=== PATIENT | male | born 1940 | race Caucasian/White ===

== ENCOUNTER 2025-07-06 15:08 | Outpatient (CLI) | payer MEDICARE, SELFPAY ==
--- OUTSIDE RECORDS SUMMARY | 2008-08-08 11:17 | XMS_ITS | Continuity of Care Document ---
Author Organization [facility] Address [id number] [place] [phone] Phone Care Team Providers Care Preassembler [employer]ed Circuit Board Name Role Phone Unavailable Unavailable Unavailable Procedures Procedure Date Ophth Serv: Med Exam; Comp New 08 No MD Ophth Biomet A-scan; W/io Lens 08 No Charge Refraction Astigmatism Protocol Advance Directives Directive Yes / No Effective Date File Name Resuscitation Not Answered N/A N/A Life Support Not Answered N/A N/A Intubation Not Answered N/A N/A Antibiotics Not Answered N/A N/A IV Fluid Support Not Answered N/A N/A Tube Feed Not Answered N/A N/A Other Directive N/A N/A WARNING:The information contained in this section is historical and is provided for information only and does not constitute a legal document or any assurance that the information is still accurate. Please verify the information with the carlisle of the legal document before using it for clinical purposes. Encounters Encounter Description Practice Location Reason(s) For Visit Diagnoses Date Provider Providers Copied on Encounter [facility], [address] [place] [address], [id number], tel:[phone] [facility] No Information No Information [facility], [address] [place] [address], [id number], tel:[phone] [facility] No Information No Information Family History Family Member Type Diagnosis Age At Onset No Information Payers Payer name Insurance type Covered libertarian ID Authoriza tion(s) [facility] Claims Dpt CI [id number] Social History Type Description Quantity Date Captured Comments Alcohol Use Details Unknown Caffeine Use Details Unknown Tobacco Use Status No Information Smoking Status No Information Sex Male Chief Complaint And Reason For Visit No Information Reason For Referral Reason For Referral No Information History Of Present Illness Encounter Date Complaint History Of Prese nt Illness No Information Functional Status Date Functional Assessmen t No Information Instructions Date Instruction Additional Infor mation No Information Assessments Type Assessment Date No Information Patient Care Teams Name Effective Dates (start - stop) Status Members No Information
--- OUTSIDE RECORDS SUMMARY | 2021-07-02 20:00 | XMS_ITS | Continuity of Care Document ---
Author Organization [facility] Address [address] [place] [address] Phone Care Team Providers Care Lounge Car Attendant Name Role Phone Jw CUELLAR Raghu Unavailable Unavailable Allergies, Adverse Reactions, Alerts Substance Reaction Status Criticality No Known Drug Allergies Active No I nformation No Known Drug Allergies Active No I nformation Advance Directives Directive Yes / No Effective Date File Name No Information Encounters Encounter Description Practice Location Reason(s) For Visit Diagnoses Date Provider Providers Copied on Encounter [facility], [address] [place], [place], [id number] , [place] tel: [phone] Sandra RodriguezES Puckering of macula, bilateralMacular cyst, hole, or pseudohole, bilateral Sep-2 Jw Krishnamurthy. [facility], [address], [place], [address], [place]. tel: [phone] [facility], [address] [place], [place], [id number] , [place] tel: [phone] [facility] Location Puckering of macula, left eyeRegular astigmatism, bilateralDermatochala sis of right upper eyelidDermatochalasis of left upper eyelidOther secondary cataract, bilateralMacular cyst, hole, or pseudohole, left eyeMacular cyst, hole, or pseudohole, bilateralMacular cyst, hole, or pseudohole, right eyeOther specified postprocedural statesKeratoconjuncti vitis sicca, not specified as Sjogren's, bilateralCystoid macular degeneration, right eyePuckering of macula, bilateralVitreous degeneration, bilateralPuckering of macula, right eyePresence of intraocular lens 1 [facility] . [address] [place] [address], [id number], [place]. tel: [phone] [facility], [address] [place] [address], [id number] , [place] tel: [phone] [facility] Location Keratoconjunctivitis sicca, not specified as Sjogren's, bilateralCystoid macular degeneration, right eyeDermatochalasis of right upper eyelidMacular cyst, hole, or pseudohole, left eyePuckering of macula, right eyeMacular cyst, hole, or pseudohole, bilateralOther secondary cataract, bilateralPuckering of macula, bilateralVitreous degeneration, bilateralDermatochala sis of left upper eyelidRegular astigmatism, bilateralPuckering of macula, left eyePresence of intraocular lensMacular cyst, hole, or pseudohole, right eye 0 [facility] . [address] [place] [address], [id number], [place]. tel: [phone] [facility], [address] [place] [address], [id number] , [place] tel: [phone] [facility] Location Vitreous degeneration, bilateralRegular astigmatism, bilateralPresence of intraocular lensMacular cyst, hole, or pseudohole, bilateralDermatochala sis of left upper eyelidDermatochalasis of right upper eyelidKeratoconjuncti vitis sicca, not specified as Sjogren's, bilateralOther secondary cataract, bilateralPuckering of macula, bilateral 0 [facility] . [address] [place] [address], [id number], [place]. tel: [phone] [facility], [address] [place] [address], [id number] , [place] tel: [phone] [facility] Location Regular astigmatism, bilateralOther secondary cataract, bilateralPresence of intraocular lensCystoid macular degeneration, right eyeDermatochalasis of left upper eyelidPuckering of macula, bilateralMacular cyst, hole, or pseudohole, bilateralVitreous degeneration, bilateralKeratoconjun ctivitis sicca, not specified as Sjogren's, bilateralDermatochala sis of right upper eyelid Aug- 0 [facility] . [address] [place] [address], [id number], [place]. tel: [phone] [facility], [address] [place] [address], [place], [place], [id number] , [place] tel: [phone] [facility] Location Puckering of macula, bilateralVitreous degeneration, bilateralMacular cyst, hole, or pseudohole, bilateralRegular astigmatism, bilateralPresence of intraocular lensCystoid macular degeneration, right eye Mar- 0 [facility] . [address] [place] [address], [id number], [place]. tel: [phone] [facility], [address] [place] [address], [id number] , [place] tel: [phone] [facility] Macular cyst, hole, or pseudohole, bilateralRegular astigmatism, bilateralPresence of intraocular lensVitreous degeneration, bilateralCystoid macular degeneration, right eyePuckering of macula, bilateral Aug- 9 [facility] . [address] [place] [address], [id number], [place]. tel: [phone] [facility], [address] [place] [address], [id number] , [place] tel: [phone] [facility] Regular astigmatism, bilateralPuckering of macula, bilateralVitreous degeneration, bilateralMacular cyst, hole, or pseudohole, left eyePuckering of macula, left eyePresence of intraocular lensMacular cyst, hole, or pseudohole, right eyeMacular cyst, hole, or pseudohole, bilateralCystoid macular degeneration, right eye 9 [facility] . [address] [place] [address], [id number], [place]. tel: [phone] [facility], [address] [place] [address], [id number] , [place] tel: [phone] [facility] Presence of intraocular lensMacular cyst, hole, or pseudohole, right eyeRegular astigmatism, bilateralCystoid macular degeneration, right eyeVitreous degeneration, bilateralMacular cyst, hole, or pseudohole, left eyePuckering of macula, left eye Dec-0 9 [facility] . [address] [place] [address], [id number], [place]. tel:[phone] [facility], [facility], [place], [place], [id number] , [place] tel:[phone] [facility] Location Regular astigmatism, bilateralMacular cyst, hole, or pseudohole, right eyePresence of intraocular lensMacular cyst, hole, or pseudohole, left eye Fe 9 [facility] . [address] [place] [address], [facility], [place]. tel:[phone] [facility], [address] [place] [address], [place], [place], [id number] , [place] tel:[phone] [facility] Location Presence of intraocular lensRegular astigmatism, bilateral 9 [facility] . [address] [place] [address], [facility], [place]. tel: [phone] [facility], [address] [place] [address], [id number] , [place] tel:[phone] [facility] Presence of intraocular lensRegular astigmatism, bilateralAge-related nuclear cataract, left eye 9 [facility] . [address] [place] [address], [address], [place]. tel:[phone] [facility], [address] [place] [address], [id number] , [place] tel: [phone] [facility] Location Regular astigmatism, bilateralAge-related nuclear cataract, left eyePresence of intraocular lens 9 [facility] . [address] [place] [address], [address], [place]. tel: [phone] [facility], [address] [place], [place], [id number] , [place] tel: [phone] [facility] Location Age-related nuclear cataract, left eyeRegular astigmatism, bilateralAge-related nuclear cataract, bilateralPresence of intraocular lens 8 [facility] . [address] [place] [address], [facility], . tel: [phone] [facility], [facility] [place], [place], [id number] , [place] tel: [phone] [facility] Location Age-related nuclear cataract, bilateralRegular astigmatism, bilateral 8 [facility] . [address] [place] [address], [facility], . tel: [phone] [facility], [address] [place] [address], [address] [place] [address] , tel: [phone] [facility] No Information 5 [facility] . [address] [place] [address], [facility], . tel: [phone] Family History Family Member Type Diagnosis Age At Onset Problem (finding) Family history unknown Payers Payer name Insurance type Covered libertarian ID Authoriza tion(s) No Information Social History Type Description Quantity Date Captured Comments Sex Male Smoking Status No Information Chief Complaint And Reason For Visit No Information Reason For Referral Reason For Referral No Information History Of Present Illness Encounter Date Complaint History Of Prese nt Illness No Information Functional Status Date Functional Assessmen t No Information Instructions Date Instruction Additional Infor mation Impression/Plan Related to [employer] revealed a macular pucker. Impression/Plan Related to [employer] revealed a macular hole. Impression/Plan Related to Diagn osis Description: PCO (posterior capsular opacification), bilateral \nDiagnosis Code: 366.50 Impression/Plan Related to Diagn osis Description: Dermatochalasis of left upper eyelid \nDiagnosis Code: 374.87 Impression/Plan Related to Diagn osis Description: Cystoid macular degeneration of right eye \nDiagnosis Code: 362.53 Impression/Plan Related to Diagn osis Description: Dermatochalasis of right upper eyelid \nDiagnosis Code: 374.87 Impression/Plan Related to Diagn osis Description: KERATOCONJUNCTIVITIS SICCA NOT SPECIFIED SJOGREN'S, BILATERAL \nDiagnosis Code: 370.33 Impression/Plan Related to Diagn osis Description: Epiretinal membrane (ERM) of left eye \nDiagnosis Code: 362.56 Impression/Plan Related to Diagn osis Description: PVD (posterior vitreous detachment), both eyes \nDiagnosis Code: 379.21 Impression/Plan Related to Diagn osis Description: Epiretinal membrane (ERM) of right eye \nDiagnosis Code: 362.56 Impression/Plan Related to Diagn osis Description: Epiretinal membrane (ERM) of both eyes \nDiagnosis Code: 362.56 Impression/Plan Related to Diagn osis Description: Lamellar macular hole of left eye \nDiagnosis Code: 362.54 Impression/Plan Related to Diagn osis Description: Lamellar macular hole, both eyes \nDiagnosis Code: 362.54 Impression/Plan Related to Diagn osis Description: Lamellar macular hole of right eye \nDiagnosis Code: 362.54 Impression/Plan Related to Diagn osis Description: Other specified postprocedural states \nDiagnosis Code: 250.50 Impression/Plan Related to Diagn osis Description: Regular astigmatism of both eyes \nDiagnosis Code: 367.21 Impression/Plan Related to Diagn osis Description: Bilateral pseudophakia \nDiagnosis Code: V43.1 Impression/Plan Related to Diagn osis Description: KERATOCONJUNCTIVITIS SICCA NOT SPECIFIED SJOGREN'S, BILATERAL \nDiagnosis Code: 370.33 Impression/Plan Related to Diagn osis Description: Dermatochalasis of right upper eyelid \nDiagnosis Code: 374.87 Impression/Plan Related to Diagn osis Description: PCO (posterior capsular opacification), bilateral \nDiagnosis Code: 366.50 Impression/Plan Related to Diagn osis Description: PVD (posterior vitreous detachment), both eyes \nDiagnosis Code: 379.21 Impression/Plan Related to Diagn osis Description: Epiretinal membrane (ERM) of left eye \nDiagnosis Code: 362.56 Impression/Plan Related to Diagn osis Description: Cystoid macular degeneration of right eye \nDiagnosis Code: 362.53 Impression/Plan Related to Diagn osis Description: Epiretinal membrane (ERM) of right eye \nDiagnosis Code: 362.56 Impression/Plan Related to Diagn osis Description: Lamellar macular hole of left eye \nDiagnosis Code: 362.54 Impression/Plan Related to Diagn osis Description: Lamellar macular hole of right eye \nDiagnosis Code: 362.54 Impression/Plan Related to Diagn osis Description: Regular astigmatism of both eyes \nDiagnosis Code: 367.21 Impression/Plan Related to Diagn osis Description: Bilateral pseudophakia \nDiagnosis Code: V43.1 Impression/Plan Related to Diagn osis Description: Lamellar macular hole, both eyes \nDiagnosis Code: 362.54 Impression/Plan Related to Diagn osis Description: Epiretinal membrane (ERM) of both eyes \nDiagnosis Code: 362.56 Impression/Plan Related to Diagn osis Description: Dermatochalasis of left upper eyelid \nDiagnosis Code: 374.87 Impression/Plan Related to Diagn osis Description: Bilateral pseudophakia \nDiagnosis Code: V43.1 Impression/Plan Related to Diagn osis Description: Lamellar macular hole, both eyes \nDiagnosis Code: 362.54 Impression/Plan Related to Diagn osis Description: Epiretinal membrane (ERM) of both eyes \nDiagnosis Code: 362.56 Impression/Plan Related to Diagn osis Description: Dermatochalasis of left upper eyelid \nDiagnosis Code: 374.87 Impression/Plan Related to Diagn osis Description: Dermatochalasis of right upper eyelid \nDiagnosis Code: 374.87 Impression/Plan Related to Diagn osis Description: KERATOCONJUNCTIVITIS SICCA NOT SPECIFIED SJOGREN'S, BILATERAL \nDiagnosis Code: 370.33 Impression/Plan Related to Diagn osis Description: PVD (posterior vitreous detachment), both eyes \nDiagnosis Code: 379.21 Impression/Plan Related to Diagn osis Description: Regular astigmatism of both eyes \nDiagnosis Code: 367.21 Impression/Plan Related to Diagn osis Description: PCO (posterior capsular opacification), bilateral \nDiagnosis Code: 366.50 Impression/Plan Related to Diagn osis Description: Bilateral pseudophakia \nDiagnosis Code: V43.1 Impression/Plan Related to Diagn osis Description: Lamellar macular hole, both eyes \nDiagnosis Code: 362.54 Impression/Plan Related to Diagn osis Description: Epiretinal membrane (ERM) of both eyes \nDiagnosis Code: 362.56 Impression/Plan Related to Diagn osis Description: Dermatochalasis of left upper eyelid \nDiagnosis Code: 374.87 Impression/Plan Related to Diagn osis Description: Dermatochalasis of right upper eyelid \nDiagnosis Code: 374.87 Impression/Plan Related to Diagn osis Description: KERATOCONJUNCTIVITIS SICCA NOT SPECIFIED SJOGREN'S, BILATERAL \nDiagnosis Code: 370.33 Impression/Plan Related to Diagn osis Description: PVD (posterior vitreous detachment), both eyes \nDiagnosis Code: 379.21 Impression/Plan Related to Diagn osis Description: Cystoid macular degeneration of right eye \nDiagnosis Code: 362.53 Impression/Plan Related to Diagn osis Description: PCO (posterior capsular opacification), bilateral \nDiagnosis Code: 366.50 Impression/Plan Related to Diagn osis Description: Regular astigmatism of both eyes \nDiagnosis Code: 367.21 Impression/Plan Related to Diagn osis Description: Epiretinal membrane (ERM) of both eyes \nDiagnosis Code: 362.56 Impression/Plan Related to Diagn osis Description: Lamellar macular hole, both eyes \nDiagnosis Code: 362.54 Impression/Plan Related to Diagn osis Description: Cystoid macular degeneration of right eye \nDiagnosis Code: 362.53 Impression/Plan Related to Diagn osis Description: Regular astigmatism of both eyes \nDiagnosis Code: 367.21 Impression/Plan Related to Diagn osis Description: Bilateral pseudophakia \nDiagnosis Code: V43.1 Impression/Plan Related to Diagn osis Description: PVD (posterior vitreous detachment), both eyes \nDiagnosis Code: 379.21 Impression/Plan Related to Diagn osis Description: Cystoid macular degeneration of right eye \nDiagnosis Code: 362.53 Impression/Plan Related to Diagn osis Description: Lamellar macular hole, both eyes \nDiagnosis Code: 362.54 Impression/Plan Related to Diagn osis Description: Epiretinal membrane (ERM) of both eyes \nDiagnosis Code: 362.56 Impression/Plan Related to Diagn osis Description: PVD (posterior vitreous detachment), both eyes \nDiagnosis Code: 379.21 Impression/Plan Related to Diagn osis Description: Bilateral pseudophakia \nDiagnosis Code: V43.1 Impression/Plan Related to Diagn osis Description: Regular astigmatism of both eyes \nDiagnosis Code: 367.21 Impression/Plan Related to Diagn osis Description: Cystoid macular degeneration of right eye \nDiagnosis Code: 362.53 Impression/Plan Related to Diagn osis Description: Regular astigmatism of both eyes \nDiagnosis Code: 367.21 Impression/Plan Related to Diagn osis Description: Bilateral pseudophakia \nDiagnosis Code: V43.1 Impression/Plan Related to Diagn osis Description: PVD (posterior vitreous detachment), both eyes \nDiagnosis Code: 379.21 Impression/Plan Related to Diagn osis Description: Epiretinal membrane (ERM) of left eye \nDiagnosis Code: 362.56 Impression/Plan Related to Diagn osis Description: Epiretinal membrane (ERM) of both eyes \nDiagnosis Code: 362.56 Impression/Plan Related to Diagn osis Description: Lamellar macular hole of left eye \nDiagnosis Code: 362.54 Impression/Plan Related to Diagn osis Description: Lamellar macular hole, both eyes \nDiagnosis Code: 362.54 Impression/Plan Related to Diagn osis Description: Lamellar macular hole of right eye \nDiagnosis Code: 362.54 Impression/Plan Related to Diagn osis Description: Regular astigmatism of both eyes \nDiagnosis Code: 367.21 Impression/Plan Related to Diagn osis Description: Bilateral pseudophakia \nDiagnosis Code: V43.1 Impression/Plan Related to Diagn osis Description: PVD (posterior vitreous detachment), both eyes \nDiagnosis Code: 379.21 Impression/Plan Related to Diagn osis Description: Epiretinal membrane (ERM) of left eye \nDiagnosis Code: 362.56 Impression/Plan Related to Diagn osis Description: Partial thickness macular hole of right eye \nDiagnosis Code: 362.54 Impression/Plan Related to Diagn osis Description: Partial thickness macular hole of left eye \nDiagnosis Code: 362.54 Impression/Plan Related to Diagn osis Description: Cystoid macular degeneration of right eye \nDiagnosis Code: 362.53 Impression/Plan Related to Diagn osis Description: Regular astigmatism of both eyes \nDiagnosis Code: 367.21 Impression/Plan Related to Diagn osis Description: Partial thickness macular hole of right eye \nDiagnosis Code: 362.54 Impression/Plan Related to Diagn osis Description: Partial thickness macular hole of left eye \nDiagnosis Code: 362.54 Impression/Plan Related to Diagn osis Description: Bilateral pseudophakia \nDiagnosis Code: V43.1 Impression/Plan Related to Diagn osis Description: Bilateral pseudophakia \nDiagnosis Code: V43.1 Impression/Plan Related to Diagn osis Description: Regular astigmatism of both eyes \nDiagnosis Code: 367.21 Impression/Plan Related to Diagn osis Description: Regular astigmatism of both eyes \nDiagnosis Code: 367.21 Impression/Plan Related to Diagn osis Description: Age-related nuclear cataract of left eye \nDiagnosis Code: 366.16 Impression/Plan Related to Diagn osis Description: Bilateral pseudophakia \nDiagnosis Code: V43.1 Impression/Plan Related to Diagn osis Description: Pseudophakia of right eye \nDiagnosis Code: V43.1 Impression/Plan Related to Diagn osis Description: Age-related nuclear cataract of left eye \nDiagnosis Code: 366.16 Impression/Plan Related to Diagn osis Description: Regular astigmatism of both eyes \nDiagnosis Code: 367.21 Impression/Plan Related to Diagn osis Description: Regular astigmatism of both eyes \nDiagnosis Code: 367.21 Impression/Plan Related to Diagn osis Description: Age-related nuclear cataract of left eye \nDiagnosis Code: 366.16 Impression/Plan Related to Diagn osis Description: Pseudophakia of right eye \nDiagnosis Code: V43.1 Impression/Plan Related to Diagn osis Description: Age-related nuclear cataract of both eyes \nDiagnosis Code: 366.16 Impression/Plan Related to Diagn osis Description: Regular astigmatism of both eyes \nDiagnosis Code: 367.21 Impression/Plan Related to Diagn osis Description: Age-related nuclear cataract of both eyes \nDiagnosis Code: 366.16 Assessments Type Assessment Date No Information Patient Care Teams Name Effective Dates (start - stop) Status Members No Information
[2025-07-06 16:29] LABS: Hematocrit 40.7 % (42.0-52.0); Hemoglobin 13.4 g/dL (14.1-18.0); Immature Granulocytes % 0.3 %; Mean Corpuscular HGB Conc 32.9 g/dL (31.8-35.4); Mean Corpuscular Hemoglobin 30.5 pg (27.0-31.2); Mean Corpuscular Volume 92.7 fl (80-94); Nucleated Red Blood Cells % 0 %; Platelet Count 201 K/mm3 (142-424); Red Blood Count 4.39 M/mm3 (4.60-6.20); Red Cell Distribution Width-SD 50.2 fL; White Blood Count 7.7 K/mm3 (4.8-10.8)
[2025-07-06 17:41] LABS: Alanine Aminotransferase 19 U/L (12-78); Albumin Level 4.3 g/dl (3.5-5.0); Alkaline Phosphatase 72 U/L (38-126); Anion Gap 12.3 mEq/L (5-15); Aspartate Amino Transferase 21 U/L (17-59); Bilirubin,Direct 0.2 mg/dl (0.0-0.4); Bilirubin,Indirect 0.5 mg/dL (0.0-0.9); Bilirubin,Total 0.7 mg/dl (0.2-1.3); Bilirubin,Unconjugated 0.5 mg/dL (0.0-1.1); Blood Urea Nitrogen 23 mg/dl (9-20); Calcium 9.7 mg/dl (8.4-10.2); Carbon Dioxide 25 mmol/L (22.0-30.0); Chloride 105 mmol/L (98-107); Cholesterol 104 mg/dl (140-200); Creatinine,Serum 1.40 mg/dl (0.66-1.25); Estimated Glomerular Filt Rate 49 ml/min (>60); GFR (African American) 59 ML/MIN (>60); Glucose 88 mg/dl (74-100); HDL Cholesterol 41 mg/dl (40-60); Magnesium 2.0 mg/dl (1.6-2.3); Potassium 4.3 mmoL/L (3.5-5.1); Sodium 138 mmol/L (136-145); Total Protein,Serum 6.6 g/dl (6.3-8.2); Triglycerides 124 mg/dl (30-150)
[2025-07-06 17:49] LABS: NT Pro Brain Natriuretic Pep. 5010 pg/mL (0-450)
[2025-07-06 17:57] LABS: Free T4 (Free Thyroxine) 1.05 ng/dl (0.78-2.19)
[2025-07-06 18:11] LABS: Thyroid Stimulating Hormone 4.73 uIU/mL (0.465-4.68)
== END 2025-07-06 23:59 | disposition home or self-care (01) ==
LOC: LAB 15:10
PROVIDERS: PCP Family Medicine; Visit Provider Internal Medicine
DX: I08.8 Other rheumatic multiple valve diseases (principal); I11.9 Hypertensive heart disease without heart failure; R94.31 Abnormal electrocardiogram [ECG] [EKG]; Z86.79 Personal history of other diseases of the circulatory system; R06.09 Other forms of dyspnea
CPT/HCPCS: 36415; 80048; 80061; 80076; 83735; 83880; 84439; 84443; 85025

== ENCOUNTER 2025-07-18 08:57 | Outpatient (CLI) | payer MEDICARE, SELFPAY ==
--- OUTSIDE RECORDS SUMMARY | 2025-05-31 11:00 | XMS_ITS | Encounter Summary ---
Author Organization [employer] ([place], [place], [place], [place]) Address [address] [place] [address] Care Team Providers Care Disaster Recovery Specialist Name Role Phone Gera Conner MD Primary Care Provider [phone] Reason for Visit * Reason Comments Follow-up Six week f/u with ho lter results Encounter Details Date Type Department Care Team (Late st Contact Info) Description 05/31/2025 11:00 AM EDT Office Visit [facility] Electrophysiology [address] [place] [address] Js Martinez MD [address] [place] [address] [address] [place] [address] Palpitations (Primary Dx) Social History Tobacco Use [...] Date Romulo rded Speak language other than Brazilian at home Not on file 10/24/2023 Want [...] Normal range of motion. Integumentary: Warm, Dry, [place]. Neurologic: Alert, Oriented. Psychiatric: Cooperative, Appropriate mood [...] I offered him to go and see berry picker machine operator to see if any further exploration of the MR and follow regularly with it but he wants to go to where he lives where there is a good berry picker machine operator. They know the name. Recommended to follow-up with urology within a few months. He does not want to do it because he is on Ditropan. Assessment and Plan: 81-year-old male referred by Dr Conner for atrial fibrillation moved back from [place] saw Dr Joyner in 2014 in the [...] I offered him to go and see berry picker machine operator to see if any further exploration of the MR and follow regularly with it but he wants to go to where he lives where there is a good berry picker machine operator. They know the name. Recommended to follow-up [...] Primary documented in this encounter Care Teams Disaster Recovery Specialist Relationship Specialty Start Date End Date Gera Conner MD [address] [place] [address] PCP - General Family Medicine 07/09/22 documented as of this encounter
--- OUTSIDE RECORDS SUMMARY | 2025-07-18 09:03 | XMS_ITS | Clinical Summary ---
Author Organization [employer] ([place], [place], [place], [place]) Address [address] [place] [address] Care Team Providers Care Manager Aerospace Name Role Phone Gera Conner MD Primary Care Provider [phone] Allergies No known active allergies Medications atorvastatin (LIPITOR) 40 MG tablet Take 1 tablet (40 mg total) by mouth daily. Active cyanocobalamin (VITAMIN B-12) 1000 MCG tablet Take 1 tablet (1,000 mcg total) by mouth daily. Active apixaban (ELIQUIS) 5 mg Tab tablet Take 1 tablet (5 mg total) by mouth 2 (two) times daily. Active cholecalciferol, vitamin D3, 2,000 unit Tab Take 1 tablet (2,000 Units total) by mouth daily. Active clobetasoL (TEMOVATE) 0.05 % external solution SMARTSIG:To pical 09/07/2022 Active oxybutynin (DITROPAN-XL) 10 MG 24 hr tablet Take 1 tablet (10 mg total) by mouth daily. 2022 Active metoprolol tartrate (LOPRESSOR) 25 MG tabletIndication s:Palpitations 37.5 MG in the AM and 12.5 in the PM. 180 tablet 3 07/02/2023 Active levothyroxine (SYNTHROID) 25 MCG tablet Take 1 tablet (25 mcg total) by mouth daily. 05/30/2025 Active Active Problems No known active problems Encounters Date Type Department Care Team Description 05/31/2025 11:00 AM EDT Office Visit [address] [address] Js Martinez MD Palpitations (Primary Dx) 05/31/2025 Travel 05/10/2025 Telephone [facility] Cardiology [address] [place] [address] Js Martinez MD Results from Last 3 Months Immunizations Immunization Administration Dates Next Due Influenza Three-tiv Pf 07/15/2015 SHINGLES VARICELLA (ZOSTAVAX) ZOSTER 06/17/2013 Social History Tobacco Use Types Packs/Day Years [...] Date Romulo rded Speak language other than Portuguese at home Not on file 10/24/2023 Want [...] on file Sexual Orientation Not on file Last Filed Vital Signs Vital Sign Reading Time Taken Comments Blood Pressure 139/80 05/31/2025 11:51 AM EDT Pulse 80 05/31/2025 11:51 AM EDT Temperature - - Respiratory Rate 16 10/22/2022 10:2 4 AM EST Oxygen Saturation 97% 05/31/2025 11: 51 AM EDT Inhaled Oxygen Concentration - - Weight 76.6 kg (168 lb 12.8 oz) 025 11:51 AM EDT Height 177.8 cm (5' 10 ) 05/31/2025 11: 51 AM EDT Body Mass Index 24.22 05/31/2025 11:51 AM EDT Plan of Treatment Health Maintenance Due Date Last Done Comments Depression Screening (12+) 1952 Shingles Vaccine (Zoster) (2 of 2) 08/12/20132012 Respiratory Syncytial Virus (RSV) Adult or (1 - 1-dose 75+ series) 2017 Medicare Initial AWV G0438 09/19/2023 Falls Risk Screening 10/13/2024 COVID-19 VACCINE (4 - 2024-2 6 season) 2025 08/24/2021, 01/23/2021, 12/28/2020 Influenza Vaccine (#1) 2025 , 09/16/2019, 08/21/2018, Additional history exists Tobacco Cessation Counseling and Screening (12+) 05/31/2026 05/31/2025 DTAP/TDAP/TD VACCINES (2 - T d or Tdap) 06/24/2031 06/24/2021 Pneumococcal 50+ years Completed 11/15/2015, 2011 Procedures Procedure Name Priority Date/Time Associated Diagnosis Comments FS_MODEL_IP_ECG 12-LEAD Routine 05/31/2025 11:50 AM EDT Palpitations HOLTER MONITOR HOOKUP Routine 05/02/2025 7:54 AM EDT Palpitations from Last 3 Months Results * ECG 12 lead (05/31/2025 11:50 AM EDT) Js Martinez MD ECG ORDERABLES Final Result * HOLTER MONITOR HOOKUP (05/02/2025 7:54 AM EDT) Anatomical Region Laterality Modality Other us Js Martinez MD [facility] C[facility] SERVICES ORDERABLES F inal Result from Last 3 Months Insurance [employer] MEDICARE HMO Care Teams Manager Aerospace Relationship Specialty Start Date End Date Gera Conner MD [address] [place] [address] [place] [address] PCP - General Family Medicine 07/09/22
--- OUTSIDE RECORDS SUMMARY | 2025-07-18 09:03 | XMS_ITS | Referral Summary ---
Author Organization [employer] ([place], [place], [place], [place]) Address [address] [place] [address] Care Team Providers Care Transcription Specialist Name Role Phone Gera Conner MD Primary Care Provider [phone] Encounters Date Type Department Care Team Description 05/31/2025 Travel 05/31/2025 11:00 AM EDT Office Visit [facility] Electrophysiology [address] [place] [address] Js Martinez MD Palpitations (Primary Dx) 05/10/2025 Telephone [facility] Cardiology [address] [place] [address] Js Martinez MD Results from Last 3 Months Allergies No known active allergies Medications atorvastatin [...] Active Active Problems No known active problems Immunizations Immunization Administration Dates Next Due Influenza [...] Date Romulo rded Speak language other than French at home Not on file 10/24/2023 Want [...] 05/31/2025 11:51 AM EDT Plan of Treatment Not on file Procedures Procedure Name Priority Date/Time Associated Diagnosis Comments FS_MODEL_IP_ECG 12-LEAD Routine 05/31/2025 11:50 AM EDT Palpitations HOLTER MONITOR HOOKUP Routine 05/02/2025 7:54 AM EDT Palpitations from Last 3 Months Results * ECG 12 lead (05/31/2025 11:50 AM EDT) Js Martinez MD ECG ORDERABLES Final Result * HOLTER MONITOR HOOKUP (05/02/2025 7:54 AM EDT) Anatomical Region Laterality Modality Other Js Martinez MD CV CARDIAC SERVICES ORDERABLES F inal Result from Last 3 Months Insurance [employer] MEDIC[employer] HMO Care Teams Transcription Specialist Relationship Specialty Start Date End Date Gera Conner MD [address] [place] [address] PCP - General Family Medicine 07/09/22
--- OUTSIDE RECORDS SUMMARY | 2025-07-18 09:04 | XMS_ITS | Encounter Summary ---
Author Organization [employer] ([place], [place], [place], [place]) Address [address] [place] [address] Care Team Providers Care Water Engineer Name Role Phone Gera Conner MD Primary Care Provider [phone] Reason for Referral * Echocardiography (Routine) - Closed Specialty Diagnoses / Procedures Referred By Contac t Referred To Contact Diagnoses Essential hypertension, malignant Caryn paroxysmal tachycardia (HCC) Procedures ECHO COMPLETE (DOPPLER / COLOR) W OR WO CONTRAST [facility] Scheduling [address] [place] [address] Phone: tel: fax: Referral ID Status Reason Start Date Expiration Date Visits Re quested Visits Authorized [id number] Closed 07/10/2022 01/06/2023 1 1 Encounter Details Date Type Department Care Team (Late st Contact Info) Description 07/10/2022 Outside Orders [facility] Scheduling [address] [place] [address] Js Martinez MD Essential hypertension, malignant (Primary Dx); Caryn paroxysmal tachycardia (HCC) Social History Tobacco Use Types Packs/Day Years Used Date Smoking Tobacco: Never Assessed Sex and Gender Information Value Date Recorded Sex Assigned at Not on file Legal Sex Male 5:27 PM CDT Gender Identity Not on file Sexual Orientation Not on file documented as of this encounter Plan of Treatment Not on file documented as of this encounter Results * ECHO COMPLETE (DOPPLER / COLOR) WO CONTRAST (09/17/2022 10:37 AM EST) Anatomical Region Laterality Modality Heart Vascular Ultraso und 09/17/2022 9:24 AM EST Narrative 09/18/2022 5:57 PM EST TRANSTHORACIC ECHOCARDIOGRAPHY REPORT Demographics Patient Name: KRISTAN Brown : 1940 Age: 81 year(s) Corporate ID Number: [id number] Gender Male Eyeglass Maker: ADRIENNE German Height: 70 inches Referring Physician: KEYSHA ARRIAGA Weight: 183.01 pounds Interpreting Physician: JS MARTINEZ MD BMI: 26.26 kg/m^2 Date of Service: 09/17/2022 Blood Pressure: 140/62 mmHg Type of Study: TTE procedure: EC Echo Complete, ECHO COMPLETE (DOPPLER / COLOR) W OR WO CONTRAST. Patient Status: Routine OP Study Location: Echo LabTechnical Quality: Adequate visualization Impression: Indication: Supraventricular tachycardia I47.1, Malignant essential hypertension I10 Normal sized left ventricle. Mild left ventricular hypertrophy. Visually estimated ejection fraction 50% +/- 5%. Normal left ventricular systolic function. Indeterminate diastolic function. Abnormal left atrial volume index 39.4 ml/m2. Mild aortic regurgitation. Abnormal TAPSE; abnormal right ventricular function. No masses or thrombi are seen. Measurements Summary: LVEDd: 4.45 cm LVESd: 2.72 cm IVSEd: 1.28 cm AO Root:3.38 cm LVPWd: 1.2 cm Contractility Score At rest the following contractility abnormalities were noted: Hypokinesis of the Basal infero-lateral, the Basal infero-septal, the Basal anterior, the Basal inferior and the Basal alpa-lateral segments. Contractility of all other segments appeared normal. LV regional wall motion: (0-Not visualized 1-Normal 2-Hypokinesis 3-Akinesis 4-Dyskinesis 5-Aneurysm) Left Ventricle Peak E-wave: 0.64 Peak A-wave: 0.19 m/s E/A ratio: 3.31 m/s Volume [id number] LV length: 7.94 cm ml Volume .99 ml LVOT diameter: 2.12 cm Normal sized left ventricle. Mild left ventricular hypertrophy. Visually estimated ejection fraction 50% +/- 5%. Normal left ventricular systolic function. Unable to obtain bullseye average for strain due to limited visualization. Indeterminate diastolic function. No left ventricular masses or thrombi. Right Ventricle Diastolic dimension: 3.82 RV systolic pressure: 26.43 mmHg cm Normal sized right ventricle. Abnormal TAPSE; abnormal right ventricular function. Left Atrium LA dimension: 4.2 cm LA volume:79.29 ml LA/Aorta: 1.24 Abnormal left atrial volume index 39.4 ml/m2. Intact atrial septum. No atrial mass or thrombus. Right Atrium Normal sized right atrium. Intact atrial septum. No atrial mass or thrombus. Mitral Valve Deceleration time: 227.84 msec Mitral valve annulus calcification. Trace mitral regurgitation. No mitral stenosis. No masses or vegetations seen. Aortic Valve AI P1/2t: 763.89 msec LVOT VTI: 14.16 cm Deceleration time: 2634.09 msec Mildly thickend free edges of the aortic valve leaflets. Mild aortic regurgitation. No aortic stenosis. No masses or vegetations seen. Tricuspid Valve TR velocity: 2.42 m/s TR gradient: 23.4256 mmHg Estimated RAP: 3 mmHg RVSP: 26.47 mmHg Structurally normal tricuspid valve. Mild (1+) tricuspid regurgitation. No tricuspid stenosis. No masses or vegetations seen. Pulmonic Valve Acceleration time: 133.79 msec PASP: 26.43 mmHg Structurally normal pulmonic valve. Mild pulmonic regurgitation (1+). No pulmonic stenosis. No masses or vegetations seen. Great Vessels Aorta Aortic Root: 3.38 cm Ascending Aorta: 3.5 cm LVOT Diameter: 2.12 cm Visualized aorta is normal. Normal aortic root. No evidence of dissection. IVC is not well visualized. Pericardium / Pleura No pericardial effusion. Other No masses or thrombi. No intracardiac shunt. Procedure Note Js Martinez MD - 09/18/2022 TRANSTHORACIC ECHOCARDIOGRAPHY REPORT Demographics Patient Name: KRISTAN Brown : 1940 Age: 81 year(s) Corporate ID Number: [id number] Gender Male Eyeglass Maker: ADRIENNE German Height: 70 inches Referring Physician: KEYSHA ARRIAGA Weight: 183.01 pounds Interpreting Physician: JS MARTINEZ MD BMI: 26.26 kg/m^2 Date of Service: 09/17/2022 Blood Pressure: 140/62 mmHg Type of Study: TTE procedure: EC Echo Complete, ECHO COMPLETE (DOPPLER / COLOR) W ORWO CONTRAST. Patient Status: Routine OP Study Location: Echo LabTechnical Quality: Adequate visualization Impression: Indication: Supraventricular tachycardia I47.1, Malignant essential hypertension I10 Normal sized left ventricle. Mild left ventricular hypertrophy. Visually estimated ejection fraction 50% +/- 5%. Normal left ventricular systolic function. Indeterminate diastolic function. Abnormal left atrial volume index 39.4 ml/m2. Mild aortic regurgitation. Abnormal TAPSE; abnormal right ventricular function. No masses or thrombi are seen. Measurements Summary: LVEDd: 4.45 cm LVESd: 2.72 cm IVSEd: 1.28 cm AO Root:3.38 cm LVPWd: 1.2 cm Contractility Score At rest the following contractility abnormalities were noted:Hypokinesis of the Basal infero-lateral, the Basal infero-septal, the Basalanterior, the Basal inferior and the Basal alpa-lateral segments. Contractilityof all other segments appeared normal. LV regional wall motion: (0-Not visualized 1-Normal 2-Hypokinesis 3-Akinesis 4-Dyskinesis 5-Aneurysm) Left Ventricle Peak E-wave: 0.64 Peak A-wave: 0.19 m/s E/A ratio: 3.31 m/s Volume [id number] LV length: 7.94 cm ml Volume ukpqpyyl01.99 ml LVOT diameter: 2.12 cm Normal sized left ventricle. Mild left ventricular hypertrophy. Visually estimated ejection fraction 50% +/- 5%. Normal left ventricular systolic function. Unable to obtain bullseye average for strain due to limitedvisualization. Indeterminate diastolic function. No left ventricular masses or thrombi. Right Ventricle Diastolic dimension: 3.82 RV systolic pressure: 26.43 mmHg cm Normal sized right ventricle. Abnormal TAPSE; abnormal right ventricular function. Left Atrium LA dimension: 4.2 cm LA volume:79.29 ml LA/Aorta: 1.24 Abnormal left atrial volume index 39.4 ml/m2. Intact atrial septum. No atrial mass or thrombus. Right Atrium Normal sized right atrium. Intact atrial septum. No atrial mass or thrombus. Mitral Valve Deceleration time: 227.84 msec Mitral valve annulus calcification. Trace mitral regurgitation. No mitral stenosis. No masses or vegetations seen. Aortic Valve AI P1/2t: 763.89 msec LVOT VTI: 14.16 cm Deceleration time: 2634.09 msec Mildly thickend free edges of the aortic valve leaflets. Mild aortic regurgitation. No aortic stenosis. No masses or vegetations seen. Tricuspid Valve TR velocity: 2.42 m/s TR gradient: 23.4256 mmHg Estimated RAP: 3 mmHg RVSP: 26.47 mmHg Structurally normal tricuspid valve. Mild (1+) tricuspid regurgitation. No tricuspid stenosis. No masses or vegetations seen. Pulmonic Valve Acceleration time: 133.79 msec PASP: 26.43 mmHg Structurally normal pulmonic valve. Mild pulmonic regurgitation (1+). No pulmonic stenosis. No masses or vegetations seen. Great Vessels Aorta Aortic Root: 3.38 cm Ascending Aorta: 3.5 cm LVOT Diameter: 2.12 cm Visualized aorta is normal. Normal aortic root. No evidence of dissection. IVC is not well visualized. Pericardium / Pleura No pericardial effusion. Other No masses or thrombi. No intracardiac shunt. Js Martinez MD CV ECHO ORDERABLES Final Result documented in this encounter Visit Diagnoses Diagnosis Essential hypertension, malignant- Primary Caryn paroxysmal tachycardia (HCC) Paroxysmal supraventricular tachycardia Essential hypertension, malignant Caryn paroxysmal tachycardia (HCC) Paroxysmal supraventricular tachycardia documented in this encounter Care Teams Water Engineer Relationship Specialty Start Date End Date Gera Conner MD [address] [place] [address] PCP - General Family Medicine 07/09/22 documented as of this encounter
--- OUTSIDE RECORDS SUMMARY | 2025-07-18 09:04 | XMS_ITS | Encounter Summary ---
Author Organization [employer] ([place], [place], [place], [place]) Address [address] [place] [address] Care Team Providers Care Disposal Worker Name Role Phone Gera Conner MD Primary Care Provider [phone] Encounter Details Date Type Department Care Team (Latest Contact Info) Description 05/31/2025 Travel Social History Tobacco Use Types Packs/Day Years Used Date Smoking Tobacco: Never Smokeless Tobacco: Never Alcohol Use Standard Drinks/Week Comments Not Currently 0 (1 standard drink = 0.6 oz pur e alcohol) Family and Community Support Answer Varinder e Recorded Help with Day to Day Activities Not on file 10/24/2023 Feeling Lonely or Isolated Not on file 10/24 Educational Attainment Answer Date Romulo rded Speak language other than Arabic at home Not on file 10/24/2023 Want [...] on file documented as of this encounter Visit Diagnoses Not on filedocumented in this encounter Care Teams Disposal Worker Relationship Specialty Start Date End Date Gera Conner MD [facility] [place] [address] PCP - General Family Medicine 07/09/22 documented as of this encounter
[2025-07-18 12:57] LABS: NT Pro Brain Natriuretic Pep. 2350 pg/mL (0-450)
== END 2025-07-18 23:59 | disposition home or self-care (01) ==
LOC: LAB 08:58
PROVIDERS: PCP Family Medicine; Visit Provider Nurse Practitioner
DX: I10 Essential (primary) hypertension (principal); R06.00 Dyspnea, unspecified
CPT/HCPCS: 36415; 83880

== ENCOUNTER 2025-07-20 07:21 | Outpatient (CLI) | payer MEDICARE, SELFPAY ==
--- OUTSIDE RECORDS SUMMARY | 2008-08-08 11:17 | XMS_ITS | Continuity of Care Document ---
Author Organization [facility] Address [id number] [place] [phone] Phone Care Team Providers Care Pharmacovigilance Scientist Name Role Phone Unavailable Unavailable Unavailable Procedures [...] accurate. Please verify the information with the cralisle of the legal document before using it for clinical purposes. Encounters Encounter Description Practice Location Reason(s) For Visit Diagnoses Date Provider Providers Copied on Encounter [facility], [address] [place] [address], [id number], tel:[phone] [facility] No Information No Information [facility], [address] [place] [address], [id number], tel:[phone] [facility] No Information No Information Family History Family Member Type Diagnosis Age At Onset No Information Payers Payer name Insurance type Covered green party ID Authoriza tion(s) [facility] Claims Dpt CI [id number] Social History Type Description Quantity Date [...]
--- OUTSIDE RECORDS SUMMARY | 2021-07-02 20:00 | XMS_ITS | Continuity of Care Document ---
Author Organization [facility] Address [address] [place] [address] Phone Care Team Providers Care Derrick Engineer Name Role Phone Raghu Escalera OD Unavailable [...] on Encounter [facility], [address] [place], [place], [id number] , [place] tel: [phone] [place] [address] [place] Puckering of macula, bilateralMacular cyst, hole, or pseudohole, bilateral Sep-2 Jw Krishnamurthy. [facility], [address], [place], [address], [place]. tel: [phone] [facility], [facility] [place], [place], [id number] , [place] tel: [phone] [facility] Location Puckering of macula, left eyeRegular [...] intraocular lens 0 1 [employer] . [address] [place] [address], [id number], . tel: [phone] [facility], [address] [place] [address], [id number] , [place] tel: [phone] [facility] Location Keratoconjunctivitis sicca, not specified as [...] pseudohole, right eye 0 [employer] . [address] [place] [address], [address], [place]. tel: [phone] [facility], [address] [place] [address], [id number] , [place] tel: [phone] [facility] Location Vitreous degeneration, bilateralRegular astigmatism, bilateralPresence of intraocular lensMacular cyst, hole, or pseudohole, bilateralDermatochala sis of left upper eyelidDermatochalasis of right upper eyelidKeratoconjuncti vitis sicca, not specified as Sjogren's, bilateralOther secondary cataract, bilateralPuckering of macula, bilateral Sep- 0 0 [employer] . [address] [place] [address], [address], [place]. tel: [phone] [facility], [address] [place] [address], [id number] , [place] tel: [phone] [facility] Location Regular astigmatism, bilateralOther secondary cataract, bilateralPresence of intraocular lensCystoid macular degeneration, right eyeDermatochalasis of left upper eyelidPuckering of macula, bilateralMacular cyst, hole, or pseudohole, bilateralVitreous degeneration, bilateralKeratoconjun ctivitis sicca, not specified as Sjogren's, bilateralDermatochala sis of right upper eyelid Aug- 0 [employer] . [address] [place] [address], [address], . tel: [phone] [facility], [address] [place] [address], [id number] , [place] tel: [phone] [facility] Location Puckering of macula, bilateralVitreous degeneration, bilateralMacular cyst, hole, or pseudohole, bilateralRegular astigmatism, bilateralPresence of intraocular lensCystoid macular degeneration, right eye Franck- 0 [employer] . [address] [place] [address], [facility], . tel: [phone] [facility], [address] [place] [address], [id number] , [place] tel: [phone] [facility] Location Macular cyst, hole, or pseudohole, bilateralRegular astigmatism, bilateralPresence of intraocular lensVitreous degeneration, bilateralCystoid macular degeneration, right eyePuckering of macula, bilateral Aug- 9 [employer] . [address] [place] [address], [address], [place]. tel: [phone] [facility], [address] [place] [address], [id number] , [place] tel: [phone] [facility] Location Regular astigmatism, bilateralPuckering of macula, bilateralVitreous degeneration, bilateralMacular cyst, hole, or pseudohole, left eyePuckering of macula, left eyePresence of intraocular lensMacular cyst, hole, or pseudohole, right eyeMacular cyst, hole, or pseudohole, bilateralCystoid macular degeneration, right eye Jan- 9 [employer] . [address] [place] [address], [address], [place]. tel: [phone] [facility], [address] [place], [place], [id number] , [place] tel: [phone] [facility] Presence of intraocular lensMacular cyst, hole, or pseudohole, right eyeRegular astigmatism, bilateralCystoid macular degeneration, right eyeVitreous degeneration, bilateralMacular cyst, hole, or pseudohole, left eyePuckering of macula, left eye Dec-0 9 [employer] . [address] [place] [address], [address], [place]. tel: [phone] [facility], [address] [place] [address], [id number] , [place] tel:[phone] [facility] Regular astigmatism, bilateralMacular cyst, hole, or pseudohole, right eyePresence of intraocular lensMacular cyst, hole, or pseudohole, left eye Fe-0 9 [employer] . [address] [place] [address], [address], [place]. tel:[phone] [facility], [address] [place] [address], [id number] , [place] tel: [phone] [facility] Presence of intraocular lensRegular astigmatism, bilateral 9 [employer] . [address] [place] [address], [address], [place]. tel: [phone] [facility], [address] [place] [address], [id number] , [place] tel: [phone] [facility] Presence of intraocular lensRegular astigmatism, bilateralAge-related nuclear cataract, left eye 9 [employer] . [address] [place] [address], [address], [place]. tel:[phone] [facility], [address] [place] [address], [id number] , [place] tel: [phone] [facility] Regular astigmatism, bilateralAge-related nuclear cataract, left eyePresence of intraocular lens 9 [employer] . [address] [place] [address], [address], . tel: [phone] [facility], [address] [place], [place], [id number] , tel: [phone] [facility] Age-related nuclear cataract, left eyeRegular astigmatism, bilateralAge-related nuclear cataract, bilateralPresence of intraocular lens 8 [employer] . [address] [place] [address], [facility], . tel: [phone] [facility], [address] [place], [place], [id number] , [place] tel: [phone] [facility] Age-related nuclear cataract, bilateralRegular astigmatism, bilateral 8 [employer] . [address] [place] [address], [facility], . tel: [phone] [facility], [address] [place], [place], [address] [place] [address] , tel: [phone] [facility] No Information 5 [employer] . [address] [place] [address], [facility], . tel: [phone] Family History Family Member Type Diagnosis Age [...] Additional Infor mation Impression/Plan Related to [employer] revealed a macular pucker. Impression/Plan Related to [employer] revealed a macular hole. Impression/Plan Related to [...] 367.21 Impression/Plan Related to Diagn osis Description: PVD [...] 362.56 Impression/Plan Related to Diagn osis Description: Regular [...]
--- OUTSIDE RECORDS SUMMARY | 2025-05-31 11:00 | XMS_ITS | Encounter Summary ---
Author Organization [employer] ([place], [place], [place], [place]) Address [address] [place] [address] Care Team Providers Care Repair Cameraman Name Role Phone Gera Conner MD Primary Care Provider [phone] Reason for Visit * Reason Comments Follow-up Six week f/u with ho lter results Encounter Details Date Type Department Care Team (Late st Contact Info) Description 05/31/2025 11:00 AM EDT Office Visit [facility] Electrophysiology [address] [place] [address] Js Martinez MD [address] [place] [address] [address] [place] [address] Palpitations (Primary Dx) Social History Tobacco Use Types Packs/Day Years Used Date Smoking Tobacco: Never Smokeless Tobacco: Never Tobacco Cessation:Counseling Given: Not Answered Alcohol Use Standard Drinks/Week Comments Not Currently 0 (1 standard drink = 0.6 oz pur e alcohol) Family and Community Support Answer Varinder e Recorded Help with Day to Day Activities Not on file 10/24/2023 Feeling Lonely or Isolated Not on file 10/24 Educational Attainment Answer Date Romulo rded Speak language other than Albanian at home Not on file 10/24/2023 Want help with school or training Not on file 10/24/2023 Substance Use Answer Date Recorded Used prescription meds for non-medical reasons N ot on file 10/24/2023 Used illegal drugs past 12 months Not on file 10/24/2023 Sex and Gender Information Value Date Recorded Sex Assigned at Not on file Legal Sex Male 5:27 PM CDT Gender Identity Not on file Sexual Orientation Not on file documented as of this encounter Last Filed Vital Signs Vital Sign Reading Time Taken Comments Blood Pressure 139/80 05/31/2025 11:51 AM EDT Pulse 80 05/31/2025 11:51 AM EDT Temperature - - Respiratory Rate - - Oxygen Saturation 97% 05/31/2025 11: 51 AM EDT Inhaled Oxygen Concentration - - Weight 76.6 kg (168 lb 12.8 oz) 025 11:51 AM EDT Height 177.8 cm (5' 10 ) 05/31/2025 11: 51 AM EDT Body Mass Index 24.22 05/31/2025 11:51 AM EDT documented in this encounter Progress Notes * Js Martinez MD - 05/31/2025 11:00 AM EDT Reason For Visit: 84 y.o. male here for a follow-up visit Medications: Scheduled Medications: More meds Current Outpatient Medications on File Prior to Visit Medication Sig Dispense Refill apixaban (ELIQUIS) 5 mg Tab tablet Take 1 tablet (5 mg total) by mouth 2 (two) times daily. atorvastatin (LIPITOR) 40 MG tablet Take 1 tablet (40 mg total) by mouth daily. cholecalciferol, vitamin D3, 2,000 unit Tab Take 1 tablet (2,000 Units total) by mouth daily. clobetasoL (TEMOVATE) 0.05 % external solution SMARTSIG:Topical cyanocobalamin (VITAMIN B-12) 1000 MCG tablet Take 1 tablet (1,000 mcg total) by mouth daily. levothyroxine (SYNTHROID) 25 MCG tablet Take 1 tablet (25 mcg total) by mouth daily. metoprolol tartrate (LOPRESSOR) 25 MG tablet 37.5 MG in the AM and 12.5 in the PM. 180 tablet 3 oxybutynin (DITROPAN-XL) 10 MG 24 hr tablet Take 1 tablet (10 mg total) by mouth daily. [DISCONTINUED] amLODIPine (NORVASC) 5 MG tablet Take 1 tablet (5 mg total) by mouth 2 (two) times daily. [DISCONTINUED] hydrocortisone 2.5 % ointment SMARTSIG:Topical No current facility-administered medications on file prior to visit. Problem list and diagnosis There is no problem list on file for this patient. 1. Palpitations ECG 12 lead Allergies: No Known Allergies Physical Exam: Blood pressure 139/80, pulse 80, height 1.778 m (5' 10 ), weight 76.6 kg (168 lb 12.8 oz), SpO2 97%. General: Alert and oriented. Eye: Pupils are equal, round and reactive to light. HENT: Normocephalic. Neck: Supple, Non-tender, No carotid bruit, No jugular venous distention. Respiratory: Lungs are clear to auscultation, Respirations are non-labored. Cardiovascular: irregular rhythm, 3 out of 6 systolic murmur, Good pulses equal in all extremities. Jugular Veins: Not distended. Gastrointestinal: Soft, Non-tender, Non-distended, Normal bowel sounds. Musculoskeletal: Normal range of motion. Integumentary: Warm, Dry, Rote. Neurologic: Alert, Oriented. Psychiatric: Cooperative, Appropriate mood & affect. Labs, Imaging, and Other Studies: EKG: sinus rhythm Echo Results (last 7 days) No results found for the last 168 hours. No results found for: K No results found for: CREATININE No results found for: EGFR , GFR No results found for: HGB No results found for: PLT No results found for: TSH No results found for: MAGNESIUM No results found for: AST , ALT HPI: Patient here for follow-up on 05/31/2025. The monitor shows permanent A-fib with a minimum heart of 38 average of 73 bpm. The echocardiogram shows that he has a moderate MR. However he said he is out of breath. I offered him to go and see production welder to see if any further exploration of the MR and follow regularly with it but he wants to go to where he lives where there is a good production welder. They know the name. Recommended to follow-up with urology within a few months. He does not want to do it because he is on Ditropan. 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 It seems that he had another ablation for A. fib in 2019 versus SVT not sure if it???s currently persistent or not some EKG in 2019 and December 2020 are in sinus rhythm. Patient had Covid recently and was treated medication with some bleeding issue so his eliquis was stopped. He said his heart is slow when his in A. fib. not sure how symptomatic he is at this time Plan: -We will do a monitor 2 weeks to see his A. fib persistent or not. -Repeat an echocardiogram not done for almost 2 years -Restarted the eliquis to prevent stroke and follow-up in 2 months. Thank you very much to Dr. Conner for allowing me to participate in the care of this patient. Patient is here for follow-up on the 09/17/2022. His monitor shows a minimum heart rate of 39 bpm, and average heart rate of 75 bpm and a max heart rate of 218 with an A. fib that is continuous duringthe 14-day monitor. We had a discussion about options. They do not want to do just a cardioversion because he flipped back to in A. fib in the past immediately after cardioversion. Their son is pharmacist so I told them that Tikosyn or amiodarone would be my recommended option at this point of timeto try maintain sinus rhythm. We had a long discussion and will need to do a pulse check. I will have the result of the echocardiogram at this point. I will see them back in a few weeks to make a final decision on how to go. I spent 31 minutes on the care of this patient Patient is here for follow-up on the 10/22/2022. The monitor shows that his A. fib is relatively rate controlled. His EF is 50% with some left atrial enlargement. Patient says that he does not want todo anything for his A. fib and do a rate control strategy at this point of time. Medications reviewed we will continue same treatment. We will follow-up in 6-months. Patient is here for follow-up on 06/19/2023. He has been doing well even though he noticed that his heart rate is low in the morning like today 46 bpm. He has been on the same regimen for several years50 mg in the morning and 12.5 mg at night of metoprolol succinate. At this stage to decrease his the morning dose to 37.5 mg daily. His is here with him today and broke her leg. I will see him back in 1 year. Patient is here for follow-up on 08/17/2024. He is in permanent A-fib doing well. Slight swelling inthe feet but not bothersome so I would not cut his amlodipine. Follow-up in 1 year. Patient here for follow-up on 03/29/2025. He said he has been more tired for the last 2 months. There is a new murmur on auscultation that is systolic 3 out of 6 will get an echocardiogram checked. Will also do a monitor as he is bradycardic. If we do not find anything he needs to follow-up with hisprimary doctor. Follow-up in 6 weeks. Patient here for follow-up on 05/31/2025. The monitor shows permanent A-fib with a minimum heart of 38 average of 73 bpm. The echocardiogram shows that he has a moderate MR. However he said he is out of breath. I offered him to go and see production welder to see if any further exploration of the MR and follow regularly with it but he wants to go to where he lives where there is a good production welder. They know the name. Recommended to follow-up with urology within a few months. He does not want to do it because he is on Ditropan. Follow-up as needed documented in this encounter Plan of Treatment Not on file documented as of this encounter Procedures Procedure Name Priority Date/Time Associated Diagnosis Comments [id number] 12-LEAD Routine 05/31/2025 11:50 AM EDT Palpitations documented in this encounter Results * ECG 12 lead (05/31/2025 11:50 AM EDT) us Js Martinez MD ECG ORDERABLES Final Result documented in this encounter Visit Diagnoses Diagnosis Palpitations- Primary documented in this encounter Care Teams Repair Cameraman Relationship Specialty Start Date End Date Gera Conner MD [address] [place] [address] PCP - General Family Medicine 07/09/22 documented as of this encounter
--- OUTSIDE RECORDS SUMMARY | 2025-07-20 07:25 | XMS_ITS | Referral Summary ---
Author Organization [employer] ([place], [place], [place], [place]) Address [address] [place] [address] Care Team Providers Care Infection Control Coordinator Name Role Phone Gera Conner MD Primary Care Provider [phone] Encounters Date Type Department Care Team Description 05/31/2025 Travel 05/31/2025 11:00 AM EDT Office Visit [facility] Electrophysiology [address] [place] [address] Js Martinez MD Palpitations (Primary Dx) 05/10/2025 Telephone [facility] Cardiology [address] [place] [address] Js Martinez MD Results from Last [...] on file 10/24 Educational Attainment Answer Date Roumlo rded Speak language other than Czech at home Not on file 10/24/2023 Want [...] Last 3 Months Insurance [place] [address] Care Teams Infection Control Coordinator Relationship Specialty Start Date End Date Gera Conner MD [address] [place] [address] PCP - General Family Medicine 07/09/22
--- OUTSIDE RECORDS SUMMARY | 2025-07-20 07:25 | XMS_ITS | Clinical Summary ---
Author Organization [employer] ([place], [place], [place], [place]) Address [address] [place] [address] Care Team Providers Care Instrument Setter Name Role Phone Gera Conner MD Primary Care Provider [phone] Allergies No known active allergies Medications atorvastatin [...] Description 05/31/2025 11:00 AM EDT Office Visit [address] [address] Js Martinez MD Palpitations (Primary Dx) 05/31/2025 Travel 05/10/2025 Telephone [facility] Cardiology [address] [place] [address] Js Martinez MD Results from [...] Date Romulo rded Speak language other than Estonian at home Not on file 10/24/2023 Want [...] Months Insurance [employer] MED[employer] HMO Care Teams Instrument Setter Relationship Specialty Start Date End Date Gera Conner MD [address] [place] [address] [place] [address] PCP - General Family Medicine 07/09/22
--- OUTSIDE RECORDS SUMMARY | 2025-07-20 07:27 | XMS_ITS | Encounter Summary ---
Author Organization [employer] ([place], [place], [place], [place]) Address [address] [place] [address] Care Team Providers Care Right Of Way Buyer Name Role Phone Gera Conner MD Primary Care Provider [phone] Reason for Referral * Echocardiography (Routine) - Closed Specialty Diagnoses / Procedures Referred By Contac t Referred To Contact Diagnoses Essential hypertension, malignant Caryn paroxysmal tachycardia (HCC) Procedures ECHO COMPLETE (DOPPLER / COLOR) W OR WO CONTRAST [facility] Scheduling [address] [place] [address] Phone: tel: fax: Referral ID Status Reason Start Date Expiration Date Visits Re quested Visits Authorized [id number] Closed 07/10/2022 01/06/2023 1 1 Encounter Details Date Type Department Care Team (Late st Contact Info) Description 07/10/2022 Outside Orders [facility] Scheduling [address] [place] [address] Js Martinez MD Essential hypertension, [...] 1940 Age: 81 year(s) Corporate ID Number: [id number] Gender Male Plant Anatomy Teacher: ADRIENNE German Height: 70 inches Referring Physician: [...] 0.19 m/s E/A ratio: 3.31 m/s Volume [id number] LV length: 7.94 cm ml Volume zthjokoq01.99 ml LVOT diameter: 2.12 cm Normal sized [...] 1940 Age: 81 year(s) Corporate ID Number: [id number] Gender Male Plant Anatomy Teacher: ADRIENNE German Height: 70 inches Referring Physician: [...] 0.19 m/s E/A ratio: 3.31 m/s Volume [id number] LV length: 7.94 cm ml Volume .99 [...] tachycardia documented in this encounter Care Teams Right Of Way Buyer Relationship Specialty Start Date End Date Gera Conner MD [address] [place] [address] PCP - General Family Medicine 07/09/22 documented as of this encounter
--- OUTSIDE RECORDS SUMMARY | 2025-07-20 07:27 | XMS_ITS | Encounter Summary ---
Author Organization [employer] ([place], [place], [place], [place]) Address [address] [facility] [place] [address] Care Team Providers Care Lead Infrastructure Architect Name Role Phone Gera Conner MD Primary Care Provider [phone] Encounter Details Date Type Department Care Team [...] Date Romulo rded Speak language other than Spanish at home Not on file 10/24/2023 Want [...] on filedocumented in this encounter Care Teams Lead Infrastructure Architect Relationship Specialty Start Date End Date Gera Conner MD [facility] [place] [address] PCP - General Family Medicine 07/09/22 documented as of this encounter
--- NOTE | 2025-07-20 08:00 | NM_ITS ---
APPROVED REPORT Exam: Nuclear Stress Test Indication: CAD, HTN, Family history, SOB Patient Location: Outpatient Stress Tech: Lexus Martini NM Tech:Jing ZengCAMPBELL RT (R)(N)(M) Ht: 5 ft 10 in Wt: 164 lbs HR: 85 bpm BP: 150/98 mmHg BSA: 1.92 m2 TID: 1.05 BMI: 23.5 History: CAD, HTN, Family history, SOB Procedure: Patient exercised on Nacho protocol 2:33 minutes and sec, resting heart rate 85 bpm, resting blood pressure 150/98 mmHg, with exercise maximum heart rate achived was 169 bpm which is 122 % of the maximum predicted heart rate and blood pressure was 227/112 mmHg. Test was stopped due to SOB. Patient denied any complaint of chest pain. Patient has exercise capacity, achieved 4.7 METs of workload on treadmill, the blood pressure response to exercise was . Cardiac Stress and Resting SPECT Images: Cardiac Stress and Resting SPECT images were obtained using technetium 99m Myoview 31.8 mCi stress and 10.41 mCi at rest. Resting and stress imaging in supine and prone positions demonstrate no evidence of fixed or reversible perfusion defects. Gated imaging demonstrates mild reduction in global LV systolic function. LVEF is calculated at 49%. Conclusion: No evidence of fixed or reversible perfusion defects. Gated imaging demonstrates mild reduction in global LV systolic function. LVEF is calculated at 49%. Correlation with new or recent TTE is suggested. Electronically signed by : Jumana Cox MD 07/26/2025 13:09:19
[2025-07-20] MEDS: SODIUM CHLORIDE 0.9% 10ML SYR (RAD ONLY) 10 ML IV (13:28)
[2025-07-20] MEDS: ISOTOPE MYOVIEW (PER STUDY) 1 DOSE IV (13:28)
== END 2025-07-20 23:59 | disposition home or self-care (01) ==
PROVIDERS: PCP Family Medicine; Visit Provider Internal Medicine
DX: I08.8 Other rheumatic multiple valve diseases (principal); I11.9 Hypertensive heart disease without heart failure; R94.31 Abnormal electrocardiogram [ECG] [EKG]; Z86.79 Personal history of other diseases of the circulatory system; I25.10 Atherosclerotic heart disease of native coronary artery without angina pectoris
CPT/HCPCS: 78452; A9502

== ENCOUNTER 2025-07-25 07:34 | Outpatient (CLI) | payer MEDICARE, SELFPAY ==
--- OUTSIDE RECORDS SUMMARY | 2008-08-08 11:17 | XMS_ITS | Continuity of Care Document ---
Author Organization [facility] Address [id number] [place] [phone] Phone Care Team Providers Care Instructional Writer Name Role Phone Unavailable Unavailable Unavailable Procedures [...] Diagnoses Date Provider Providers Copied on Encounter [facility], [address] [place] [address], [id number], tel:[phone] [facility] No Information No Information [facility], [address] [place] [address], [id number], tel:[phone] [facility] No Information No Information Family History Family Member Type Diagnosis Age At Onset No Information Payers Payer name Insurance type Covered libertarian ID Authoriza tion(s) [facility] Claims Dpt CI [id number] Social History Type Description Quantity Date [...]
--- OUTSIDE RECORDS SUMMARY | 2021-07-02 20:00 | XMS_ITS | Continuity of Care Document ---
Author Organization [facility] Address [address] [place] [address] Phone Care Team Providers Care Systems Support Officer Name Role Phone Raghu Escalera OD Unavailable Unavailable Allergies, Adverse Reactions, Alerts Substance Reaction Status Criticality No Known Drug Allergies Active No I nformation No Known Drug Allergies Active No I nformation Advance Directives Directive Yes / No Effective Date File Name No Information Encounters Encounter Description Practice Location Reason(s) For Visit Diagnoses Date Provider Providers Copied on Encounter [facility], [address] [place], [place], [id number] , [place] tel: [phone] [place] [address] Puckering of macula, bilateralMacular cyst, hole, or pseudohole, bilateral Sep-2 Jw Krishnamurthy. [facility], [address], [place], [address], [place]. tel: [phone] [facility], [facility], [place], [id number] , [place] tel: [phone] [facility] Location Puckering of macula, left eyeRegular [...] of macula, right eyePresence of intraocular lens 0 1 [employer] . [address] [place] [address], [address], . tel: [phone] [facility], [address] [place] [address], [id number] , [place] tel: [phone] [facility] Location Keratoconjunctivitis sicca, not specified as [...] pseudohole, right eye 0 [employer] . [address] [place] [address], [address], [place]. tel: [phone] [facility], [address] [place] [address], [id number] , [place] tel: [phone] [facility] Location Vitreous degeneration, bilateralRegular astigmatism, bilateralPresence of intraocular lensMacular cyst, hole, or pseudohole, bilateralDermatochala sis of left upper eyelidDermatochalasis of right upper eyelidKeratoconjuncti vitis sicca, not specified as Sjogren's, bilateralOther secondary cataract, bilateralPuckering of macula, bilateral Sep- 0 0 [employer] . [address] [place] [address], [id number], [place]. tel: [phone] [facility], [address] [place] [address], [id number] , [place] tel: [phone] [facility] Location Regular astigmatism, bilateralOther secondary cataract, bilateralPresence of intraocular lensCystoid macular degeneration, right eyeDermatochalasis of left upper eyelidPuckering of macula, bilateralMacular cyst, hole, or pseudohole, bilateralVitreous degeneration, bilateralKeratoconjun ctivitis sicca, not specified as Sjogren's, bilateralDermatochala sis of right upper eyelid Aug- 0 [employer] . [address] [place] [address], [id number], . tel: [phone] [facility], [address] [place] [address], [id number] , [place] tel: [phone] [facility] Location Puckering of macula, bilateralVitreous degeneration, bilateralMacular cyst, hole, or pseudohole, bilateralRegular astigmatism, bilateralPresence of intraocular lensCystoid macular degeneration, right eye Franck- 0 [employer] . [address] [place] [address], [facility], . tel: [phone] [facility], [address] [place] [address], [id number] , [place] tel: [phone] [facility] Location Macular cyst, hole, or pseudohole, bilateralRegular astigmatism, bilateralPresence of intraocular lensVitreous degeneration, bilateralCystoid macular degeneration, right eyePuckering of macula, bilateral Aug- 9 [employer] . [address] [place] [address], [address], [place]. tel: [phone] [facility], [address] [place] [address], [id number] , [place] tel: [phone] [facility] Location Regular astigmatism, bilateralPuckering of macula, bilateralVitreous degeneration, bilateralMacular cyst, hole, or pseudohole, left eyePuckering of macula, left eyePresence of intraocular lensMacular cyst, hole, or pseudohole, right eyeMacular cyst, hole, or pseudohole, bilateralCystoid macular degeneration, right eye Jan- 9 [employer] . [address] [place] [address], [address], [place]. tel: [phone] [facility], [address], [place], [id number] , [place] tel: [phone] [facility] Presence of intraocular lensMacular cyst, hole, or pseudohole, right eyeRegular astigmatism, bilateralCystoid macular degeneration, right eyeVitreous degeneration, bilateralMacular cyst, hole, or pseudohole, left eyePuckering of macula, left eye Dec-0 9 [employer] . [address] [place] [address], [address], [place]. tel: [phone] [facility], [address] [place] [address], [id number] , [place] tel:[phone] [facility] Regular astigmatism, bilateralMacular cyst, hole, or pseudohole, right eyePresence of intraocular lensMacular cyst, hole, or pseudohole, left eye Fe-0 9 [employer] . [address] [place] [address], [address], [place]. tel:[phone] [facility], [address] [place] [address], [id number] , [place] tel: [phone] [facility] Presence of intraocular lensRegular astigmatism, bilateral 9 [employer] . [address] [place] [address], [address], [place]. tel: [phone] [facility], [address] [place] [address], [id number] , [place] tel: [phone] [facility] Presence of intraocular lensRegular astigmatism, bilateralAge-related nuclear cataract, left eye 9 [employer] . [address] [place] [address], [id number], [place]. tel:[phone] [facility], [address] [place] [address], [id number] , [place] tel: [phone] [facility] Regular astigmatism, bilateralAge-related nuclear cataract, left eyePresence of intraocular lens 9 [employer] . [address] [place] [address], [address], . tel: [phone] [facility], [address] [place], [place], [id number] , tel: [phone] [facility] Location Age-related nuclear cataract, left eyeRegular astigmatism, bilateralAge-related nuclear cataract, bilateralPresence of intraocular lens 8 [employer] . [address] [place] [address], [facility], . tel: [phone] [facility], [address] [place], [place], [id number] , [place] tel: [phone] [facility] Location Age-related nuclear cataract, bilateralRegular astigmatism, bilateral 8 [employer] . [address] [place] [address], [facility], . tel: [phone] [facility], [address] [place], [place], [address] [place] [address] , tel: [phone] [facility] No Information 5 [employer] . [address] [place] [address], [facility], . tel: [phone] Family History Family Member Type Diagnosis Age At Onset Problem (finding) Family history unknown Payers Payer name Insurance type Covered green party ID Authoriza tion(s) No Information Social History [...] Additional Infor mation Impression/Plan Related to [employer] revealed a macular pucker. Impression/Plan Related to [employer] revealed a macular hole. Impression/Plan Related to [...] V43.1 Impression/Plan Related to Diagn osis Description: PCO [...] 370.33 Impression/Plan Related to Diagn osis Description: Bilateral [...]
--- OUTSIDE RECORDS SUMMARY | 2025-05-31 11:00 | XMS_ITS | Encounter Summary ---
Author Organization [employer] ([place], [place], [place]) Address [address] [place] [address] Care Team Providers Care Interchange Agent Name Role Phone Gera Conner MD Primary Care Provider [phone] Reason for Visit * Reason Comments Follow-up Six week f/u with ho lter results Encounter Details Date Type Department Care Team (Late st Contact Info) Description 05/31/2025 11:00 AM EDT Office Visit [facility] Electrophysiology [address] [place] [address] Js Martinez MD [address] [place] [address] [address] [place] [address] Palpitations (Primary Dx) Social History Tobacco Use [...] Date Romulo rded Speak language other than Kiswahili at home Not on file 10/24/2023 Want [...] Normal range of motion. Integumentary: Warm, Dry, [place]. Neurologic: Alert, Oriented. Psychiatric: Cooperative, Appropriate mood [...] I offered him to go and see drywall stripper helper to see if any further exploration of the MR and follow regularly with it but he wants to go to where he lives where there is a good drywall stripper helper. They know the name. Recommended to follow-up with urology within a few months. He does not want to do it because he is on Ditropan. Assessment and Plan: 81-year-old male referred by Dr Conner for atrial fibrillation moved back from [place] saw Dr Joyner in 2014 in the [...] I offered him to go and see drywall stripper helper to see if any further exploration of the MR and follow regularly with it but he wants to go to where he lives where there is a good drywall stripper helper. They know the name. Recommended to follow-up [...] Primary documented in this encounter Care Teams Interchange Agent Relationship Specialty Start Date End Date Gera Conner MD [address] [place] [address] PCP - General Family Medicine 07/09/22 documented as of this encounter
--- OUTSIDE RECORDS SUMMARY | 2025-07-25 07:37 | XMS_ITS | Clinical Summary ---
Author Organization [employer] ([place], [place], [place], [place]) Address [address] [place] [address] Care Team Providers Care Appeals Assistant Name Role Phone Gera Conner MD Primary Care Provider [phone] Allergies No known active allergies Medications atorvastatin [...] Description 05/31/2025 11:00 AM EDT Office Visit [address] [address] Js Martinez MD Palpitations (Primary Dx) 05/31/2025 Travel 05/10/2025 Telephone [facility] [address] [place] [address] Js Martinez MD Results from [...] Date Romulo rded Speak language other than Bhutanese at home Not on file 10/24/2023 Want [...] Months Insurance [employer] HMO Care Teams Appeals Assistant Relationship Specialty Start Date End Date Gera Conner MD [address] [place] [address] [place] [address] PCP - General Family Medicine 07/09/22
--- OUTSIDE RECORDS SUMMARY | 2025-07-25 07:37 | XMS_ITS | Referral Summary ---
Author Organization [employer] ([place], [place], [place], [place]) Address [address] [place] [address] Care Team Providers Care Slip Injector And Applicator Name Role Phone Gera Conner MD Primary Care Provider [phone] Encounters Date Type Department Care Team Description 05/31/2025 Travel 05/31/2025 11:00 AM EDT Office Visit [facility] Electrophysiology [address] [place] [id number] Js Martinez MD Palpitations (Primary Dx) 05/10/2025 Telephone [facility] Cardiology [address] [place] [id number] Js Martinez MD Results from Last [...] Date Romulo rded Speak language other than Swedish at home Not on file 10/24/2023 Want [...] Last 3 Months Insurance [place] [id number] Care Teams Slip Injector And Applicator Relationship Specialty Start Date End Date Gera Conner MD [address] [place] [address] PCP - General Family Medicine 07/09/22
--- OUTSIDE RECORDS SUMMARY | 2025-07-25 07:38 | XMS_ITS | Encounter Summary ---
Author Organization [employer] ([place], [place], [place], [place]) Address [address] [place] [address] Care Team Providers Care Dragline Engineer Name Role Phone Gera Conner MD Primary Care Provider [phone] Encounter Details Date Type Department Care Team [...] Date Romulo rded Speak language other than Gambian at home Not on file 10/24/2023 Want [...] on filedocumented in this encounter Care Teams Dragline Engineer Relationship Specialty Start Date End Date Gera Conner MD [facility] [place] [address] PCP - General Family Medicine 07/09/22 documented as of this encounter
--- OUTSIDE RECORDS SUMMARY | 2025-07-25 07:38 | XMS_ITS | Encounter Summary ---
Author Organization [employer] ([place], [place], [place], [place]) Address [address] [place] [address] Care Team Providers Care Band Sawing Machine Operator Name Role Phone Gera Conner MD Primary Care Provider [phone] Reason for Referral * Echocardiography (Routine) - Closed Specialty Diagnoses / Procedures Referred By Contac t Referred To Contact Diagnoses Essential hypertension, malignant Caryn paroxysmal tachycardia (HCC) Procedures ECHO COMPLETE (DOPPLER / COLOR) W OR WO CONTRAST [facility] [address] [place] [address] Phone: tel: fax: Referral ID Status Reason Start Date Expiration Date Visits Re quested Visits Authorized [id number] Closed 07/10/2022 01/06/2023 1 1 Encounter Details Date Type Department Care Team (Late st Contact Info) Description 07/10/2022 Outside Orders [facility] [address] [place] [address] Js Martinez MD Essential hypertension, [...] 1940 Age: 81 year(s) Corporate ID Number: [id number] Gender 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: ADRIENNE German Height: 70 inches Referring Physician: [...] 0.19 m/s E/A ratio: 3.31 m/s Volume [id number] LV length: 7.94 cm ml Volume [id number] ml LVOT diameter: 2.12 cm Normal sized [...] 1940 Age: 81 year(s) Corporate ID Number: [id number] Gender 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: ADRIENNE German Height: 70 inches Referring Physician: [...] 0.19 m/s E/A ratio: 3.31 m/s Volume .05 LV length: 7.94 cm ml Volume [id number] ml LVOT diameter: 2.12 cm Normal sized [...] tachycardia documented in this encounter Care Teams Band Sawing Machine Operator Relationship Specialty Start Date End Date Gera Conner MD [address] [place] [address] PCP - General Family Medicine 07/09/22 documented as of this encounter
[2025-07-25 08:20] VITALS: BP 150/98; BP 227/112; PULSE 88; RESP 14
[2025-07-25] MEDS: SODIUM CHLORIDE 0.9% 10ML SYR (RAD ONLY) 10 ML IV (08:30)
== END 2025-07-25 23:59 | disposition home or self-care (01) ==
LOC: RAD 07:35
PROVIDERS: PCP Family Medicine; Visit Provider Internal Medicine
DX: I49.3 Ventricular premature depolarization (principal); I47.20 Ventricular tachycardia, unspecified; I48.91 Unspecified atrial fibrillation; I11.9 Hypertensive heart disease without heart failure; I08.8 Other rheumatic multiple valve diseases; I25.10 Atherosclerotic heart disease of native coronary artery without angina pectoris; R94.31 Abnormal electrocardiogram [ECG] [EKG]; Z86.79 Personal history of other diseases of the circulatory system
CPT/HCPCS: 93017; 93018